=== PATIENT | female | born 1990 | race Caucasian/White ===

== ENCOUNTER → 2022-04-23 | Outpatient (CLI) | payer BC ==
--- NOTE | 2022-04-23 14:44 | P.SLEEP ---
History of Present Illness DATE: 04/23/2022 CONSULTATION/NEW PATIENT EVALUATION HISTORY OF PRESENT ILLNESS/SLEEP-WAKE EVALUATION: 31-year-old lady had been ev aluated in the sleep center for possible obstructive sleep apnea hypopnea syndrome and excessive daytime sleepiness. SLEEP SCHEDULE: Usually sleep schedule from 10 PM to 6:30 AM on working days and from 10 PM to 10 AM on weekend. FALLING ASLEEP: Patient does have problems with falling asleep, has TV set in bedroom. DURING SLEEP: Patient sleeps in different positions by herself, so no clear info rmation about snoring. Patient wakes up from sleep several times. Questionable positive history of heart neurological hallucinations. Positive history of awakenings with dry mouth, panic attack, palpitation, grinding teeth, heartburn, gasping for air and sweating. No history of sleep paralysis, or cataplexy. DURING THE DAY/WAKE STATE: In the morning patient wake up tired, has difficulties to pay attention, falling asleep during the day, has problems with concentration, irritability, episodes of anxiety. [place] sleepiness scale is increased to 12. Patient take 2 or 3 naps on day off, sometimes positive history of vivid dreams during naps. Patient takes several caffeinated beverages during the day. PAST MEDICAL HISTORY: Peptic ulcer disease, acid reflux, sinusitis problems. PAST SURGICAL HISTORY: Tonsillectomy, adenoidectomy, right elbow surgery. MEDICATIONS: None at the present time. SOCIAL HISTORY: Positive history of smoking half pack a day up to 10 years, alcohol consumption occasional. FAMILY HISTORY: Sleep apnea by multiple members of family, during the sleep, hypertension, cancer, diabetes. REVIEW OF SYSTEMS: Multiple awakenings from sleep with episodes of gasping for air and daytime sleepiness. No fevers. No double vision. No recent chest pain. No shortness of breath. No abdominal pain. No bleeding episodes. No blood in urine. No seizure episodes. PHYSICAL EXAMINATION: GENERAL: A pleasant patient without any distress. VITAL SIGNS: BP 122/86, HR 111, RR 16, weight 216.2 pounds, height 5 foot 2-3/4 inches, body mass index 38.6. HEENT: PERRLA, EOMI. Evaluation of oropharynx showed tongue protrudes midline, low position of soft palate Mallampati 4. NECK: Supple. No JVD. Thyroid is not palpable. 15-1/4 inches in circumference. LUNGS: Clear to percussion and to auscultation. Good air exchange. No wheezing or rhonchi. HEART: S1, S2 regular. No murmurs, gallops or rubs. ABDOMEN: Soft and nontender. Bowel sounds are present. No organomegaly appreciated. Slightly obese. EXTREMITIES: No clubbing or cyanosis. PERINATAL BREASTFEEDING ASSISTANT: Awake, alert, and oriented x3. Cranial nerves 2 to 7 intact. There is no fasciculation or atrophy noted. No focal deficits observed. ASSESSMENT: 1. Multiple awakenings from sleep, extremely low position of soft palate Mallampati 4, sleepiness. Obstructive sleep apnea hypopnea syndrome. 2. Positive history of vivid dreams during night sleep and to naps. Questionable history of heart neurological hallucinations. Sleepiness with [place] Sleepiness Scale of 12 dictated necessity to include hypersomnia in differential diagnosis. 3. Obesity body mass index 38.6. 4. History of peptic ulcer disease. 5 history of sinuses problems. 6 . Status post tonsillectomy and adenoidectomy. 7. Status post right elbow surgical treatment. PLAN: 1. Home sleep apnea test for evaluation of patient's breathing during sleep. 2. CPAP/BiPAP titration if sleep study confirms obstructive sleep apnea- hypopnea syndrome. 3. Preferable position during sleep on the side. 4. No driving if patient feels any sleepiness. Patient is aware of civil and criminal liability for unsafe driving. 5. Sleep hygiene with regular sleep time for at least 7.5-8 hours. 6. Watching and losing weight. 7. We may consider multiple sleep latency test if sleep study will be negative for obstructive sleep apnea hypopnea syndrome. Thank you very much for referring this patient for consultation. Sincerely, Lucas Rock MD, PhD, FAASM. Diplomat of [place] [employer], Sleep Medicine Board by [place] [employer] [place] [employer] [facility] [place] Past Medical History Past Medical History: GERD/Reflux History of Any Multi-Drug Resistant Organisms: None Reported Past Surgical History: Adenoidectomy, Orthopedic Surgery, Tonsillectomy Additional Past Surgical History / Comment(s): EGD,colonoscopy, reconstructive surg. right elbow Past Anesthesia/Blood Transfusion Reactions: Motion Sickness, Postoperative Nausea & Vomiting (PONV) Past Psychological History: No Psychological Hx Reported Past Alcohol Use History: Occasional Additional Past Alcohol Use History / Comment(s): SMOKED: 11 YRS. PPD: LESS THAN 1 Past Drug Use History: None Reported Medications and Allergies Home Medications Medication Instructions Recorded Confirmed Type Sucralfate [Carafate] 1 gm PO ACHS #90 tablet 10/26/14 08/08/15 Rx raNITIdine HCL [Ranitidine HCl] 300 mg PO QAM 08/06/15 08/08/15 History Allergies Allergy/AdvReac Type Severity Reaction Status Date / Time aspirin Allergy shortness Verified 08/08/15 08:51 of breath Latex, Natural Rubber Allergy Rash/Hives Verified 08/08/15 08:51 Sleep Note - Sleep Note Sleep Note: Temperature: Pulse Rate: Respiratory Rate: Blood Pressure: SpO2: Height: Weight: BMI: Neck Circumference:
== END ==
LOC: SLEEP 13:49
PROVIDERS: ATTEND Internal Medicine
DX: G47.33 Obstructive sleep apnea (adult) (pediatric) (principal); E66.9 Obesity, unspecified; Z68.38 Body mass index [BMI] 38.0-38.9, adult; Z87.11 Personal history of peptic ulcer disease; Z87.09 Personal history of other diseases of the respiratory system; Z90.09 Acquired absence of other part of head and neck; Z48.817 Encounter for surgical aftercare following surgery on the skin and subcutaneous tissue; Z99.89 Dependence on other enabling machines and devices; K21.9 Gastro-esophageal reflux disease without esophagitis; Z88.6 Allergy status to analgesic agent; Z91.040 Latex allergy status; F17.200 Nicotine dependence, unspecified, uncomplicated
CPT/HCPCS: 99202